=== PATIENT | female | born 1955 | race Caucasian/White ===

== ENCOUNTER → 2021-07-12 | Outpatient (CLI) | payer MEDICARE, OTHER ==
[~2021-07-12] MED LIST: ACIPHEX20 MG PO; ALDACTONE 100M100 MG PO; ALDACTONE50 MG PO; AMBIEN 5MG TABLE5 MG PO; ASPIRIN E.C. 8181 MG PO; B-121000 MCG PO; BIOTIN5000 MCG PO; CIPRO 500MG TA500 MG PO; COZAAR 50MG50 MG/TAB PO; FERRO-TIME325 MG PO; FERROUS SU325 MG/TAB PO; FLEXERIL 1010 MG/TAB PO; FOLIC ACID 11 MG/TA1 PO; GLUCOPHAGE500 MG/TAB PO; LASIX 40MG TABL40 MG PO; LASIX 80MG TABL80 MG PO; LYRICA 150MG C150 MG PO; MAGNESIUM CITR100 MG PO; MASON NATURAL2000 IU PO; MELATONIN5 M1 PO; NATURAL E400 IU PO; NATURAL MAGNES200 MG PO; NEURONTIN300 MG/CAP PO; PERCOCET 325 MG1 TA2 PO; PLAVIX 75MG TAB75 MG PO; TAMOXIFEN CITRA20 MG PO; TAURINE; TESSALON PERLE200 MG PO; TUMS500 MG PO; VITAMIN A10k PO; VITAMIN B125000 MCG PO; VITAMIN C500 MG PO; VITAMIN E1000 U/CAP PO; VITAMINC1000TA PO; XIFAXAN550 MG PO; ZANAFLEX CAPSULE4 MG PO; ZANTAC 150MG T150 MG PO; ZINC SULFATE 1566 MG PO
== END ==
LOC: COL.RAD 09:50
DX: K75.81 Nonalcoholic steatohepatitis (NASH) (principal); K74.60 Unspecified cirrhosis of liver

== ENCOUNTER 2021-09-20 09:06 | Outpatient (CLI) | payer MEDICARE, OTHER ==
[~2021-09-20] VITALS: Ht 165.1 cm; Wt 85.6 kg
[~2021-09-20 09:06] MED LIST changes: -ALDACTONE 100M100 MG PO; -ALDACTONE50 MG PO; -ASPIRIN E.C. 8181 MG PO; -B-121000 MCG PO; -BIOTIN5000 MCG PO; -CIPRO 500MG TA500 MG PO; -FERRO-TIME325 MG PO; -FERROUS SU325 MG/TAB PO; -FOLIC ACID 11 MG/TA1 PO; -LASIX 40MG TABL40 MG PO; -LASIX 80MG TABL80 MG PO; -MAGNESIUM CITR100 MG PO; -MASON NATURAL2000 IU PO; -MELATONIN5 M1 PO; -NATURAL E400 IU PO; -NATURAL MAGNES200 MG PO; -PLAVIX 75MG TAB75 MG PO; -TAURINE; -VITAMIN A10k PO; -VITAMIN B125000 MCG PO; -VITAMIN C500 MG PO; -VITAMIN E1000 U/CAP PO; -VITAMINC1000TA PO; -XIFAXAN550 MG PO; -ZINC SULFATE 1566 MG PO
[2021-09-20 09:40] VITALS: BP 106/68; PULSE 81; TEMP 98.3
--- NOTE | 2021-09-20 11:15 | NUR ---
Pt tolerated albumin infusion without issue. INT DC'd with catheter intact. She is escorted out to elevator, gait steady.
[2021-09-20] MEDS ORDERED: AMBIEN 5MG TABLE5 MG PO (12:13)
[2021-09-20] MEDS ORDERED: LASIX 80MG TABL80 MG PO (12:21)
[2021-09-20] MEDS ORDERED: FERRO-TIME325 MG PO (12:21)
[2021-09-20] MEDS ORDERED: ZINC SULFATE 1566 MG PO (12:22)
[2021-09-20] MEDS ORDERED: ALDACTONE 100M100 MG PO (12:23)
[2021-09-20] MEDS ORDERED: VITAMIN C500 MG PO (12:23)
[2021-09-20] MEDS ORDERED: PLAVIX 75MG TAB75 MG PO (12:24)
[2021-09-20] MEDS ORDERED: NATURAL E400 IU PO (12:24)
[2021-09-20] MEDS ORDERED: VITAMIN A10k PO (12:24)
[2021-09-20] MEDS ORDERED: CIPRO 500MG TA500 MG PO (12:25)
[2021-09-20] MEDS ORDERED: ASPIRIN E.C. 8181 MG PO (12:25)
[2021-09-20] MEDS ORDERED: FOLIC ACID 11 MG/TA1 PO (12:28)
[2021-09-20] MEDS ORDERED: NATURAL MAGNES200 MG PO (12:28)
[2021-09-20] MEDS ORDERED: MASON NATURAL2000 IU PO (12:28)
[2021-09-20] MEDS ORDERED: B-121000 MCG PO (12:29)
[2021-09-20] MEDS ORDERED: MELATONIN5 M1 PO (12:29)
[2021-09-20] MEDS ORDERED: XIFAXAN550 MG PO (12:30)
[2021-10-26] MEDS ORDERED: AMBIEN 5MG TABLE5 MG PO (16:44)
[2021-10-26] MEDS ORDERED: BIOTIN5000 MCG PO (16:45)
[2021-10-26] MEDS ORDERED: LASIX 40MG TABL40 MG PO (16:46)
[2021-10-26] MEDS ORDERED: MAGNESIUM CITR100 MG PO (16:48)
[2021-10-26] MEDS ORDERED: ACIPHEX20 MG PO (16:49)
[2021-10-26] MEDS ORDERED: ALDACTONE50 MG PO (16:50)
[2021-10-26] MEDS ORDERED: TAMOXIFEN CITRA20 MG PO (16:51)
[2021-10-26] MEDS ORDERED: VITAMIN A10k PO (16:52)
[2021-10-26] MEDS ORDERED: TAURINE (16:52)
[2021-10-26] MEDS ORDERED: VITAMIN E1000 U/CAP PO (16:53)
[2021-10-26] MEDS ORDERED: ZINC SULFATE 1566 MG PO (16:57)
[2021-10-26] MEDS ORDERED: VITAMIN B125000 MCG PO (16:57)
[2021-10-26] MEDS ORDERED: VITAMINC1000TA PO (17:02)
[2021-10-27] MEDS ORDERED: XIFAXAN550 MG PO (11:36)
[2021-10-27] MEDS ORDERED: FERROUS SU325 MG/TAB PO (11:37)
[2021-10-27] MEDS ORDERED: ZINC SULFATE 1566 MG PO (11:38)
== END 2021-09-20 12:31 | disposition home or self-care (01) ==
LOC: EUO 09:06
DX: K75.81 Nonalcoholic steatohepatitis (NASH) (principal); K74.60 Unspecified cirrhosis of liver
CPT/HCPCS: P9047

== ENCOUNTER 2021-10-27 13:00 | Outpatient (RCR) | payer MEDICARE, OTHER ==
[2021-10-26 17:33] VITALS: BP 97/45; PULSE 84; TEMP 97.9
[2021-10-26 17:48] VITALS: BP 101/40; PULSE 86; TEMP 98.1
[2021-10-26 18:03] VITALS: BP 95/63; PULSE 91; TEMP 98.5
[2021-10-26 18:33] VITALS: BP 108/65; PULSE 87; TEMP 98.5
--- NOTE | 2021-10-26 18:38 | NUR ---
Report to Verenice Hollis.
[2021-10-26 19:20] VITALS: BP 111/69; PULSE 90; TEMP 98.3
--- NOTE | 2021-10-26 19:31 | NUR ---
INT to right AC wrapped with coban. Pt to return at 1300 10/27/21 for second unit PRBC per pt request
[2021-10-27] VITALS (7 sets, daily range): BP systolic 103–115; BP diastolic 66–70; PULSE 73–90; TEMP 97.9–98.4
[~2021-10-27 13:00] MED LIST changes: +ALDACTONE 100M100 MG PO; +ALDACTONE50 MG PO; +ASPIRIN E.C. 8181 MG PO; +B-121000 MCG PO; +BIOTIN5000 MCG PO; +CIPRO 500MG TA500 MG PO; +FERRO-TIME325 MG PO; +FERROUS SU325 MG/TAB PO; +FOLIC ACID 11 MG/TA1 PO; +LASIX 40MG TABL40 MG PO; +LASIX 80MG TABL80 MG PO; +MAGNESIUM CITR100 MG PO; +MASON NATURAL2000 IU PO; +MELATONIN5 M1 PO; +NATURAL E400 IU PO; +NATURAL MAGNES200 MG PO; +PLAVIX 75MG TAB75 MG PO; +TAURINE; +VITAMIN A10k PO; +VITAMIN B125000 MCG PO; +VITAMIN C500 MG PO; +VITAMIN E1000 U/CAP PO; +VITAMINC1000TA PO; +XIFAXAN550 MG PO; +ZINC SULFATE 1566 MG PO
[2021-10-27] MEDS ORDERED: PLAVIX 75MG TAB75 MG PO (13:12)
[2021-10-27] MEDS ORDERED: VITAMIN A10k PO (13:12)
[2021-10-27] MEDS ORDERED: NATURAL E400 IU PO (13:13)
[2021-10-27] MEDS ORDERED: CIPRO 500MG TA500 MG PO (13:14)
[2021-10-27] MEDS ORDERED: NATURAL MAGNES200 MG PO (13:14)
--- NOTE | 2021-10-27 13:50 | NUR ---
INT DC'd with catheter intact. Pt exits from dept with steady gait.
[2021-10-27] MEDS ORDERED: MELATONIN5 M1 PO (14:00)
[2021-10-27] MEDS ORDERED: B-121000 MCG PO (14:01)
[2021-10-27] MEDS ORDERED: FOLIC ACID 11 MG/TA1 PO (14:01)
== END 2021-10-27 14:02 | disposition home or self-care (01) ==
LOC: EUO 13:00
DX: D05.11 Intraductal carcinoma in situ of right breast (principal); D64.9 Anemia, unspecified
CPT/HCPCS: J7050; P9016

== ENCOUNTER → 2021-12-30 | Outpatient (CLI) | payer MEDICARE, OTHER | LOC: MC.RAD 08:51 | DX: D05.11 Intraductal carcinoma in situ of right breast (principal) ==

== ENCOUNTER → 2022-01-04 | Outpatient (CLI) | payer MEDICARE, OTHER | LOC: MC.RAD 13:47 | DX: Z85.3 Personal history of malignant neoplasm of breast (principal) ==

== ENCOUNTER → 2022-02-21 | Outpatient (CLI) | payer MEDICARE, OTHER ==
[~2022-02-21] VITALS: Ht 165.1 cm; Wt 94.5 kg
[~2022-02-21] MED LIST changes: +DESYREL 50MG50 MG PO; +ELIQUIS 5MG PO; +MAGNESIUM200 MG PO; +MELATONIN5 M1 SL
[2022-02-21 11:59] VITALS: BP 114/74; PULSE 86; TEMP 98.1
--- NOTE | 2022-02-21 12:54 | NUR ---
pt returns to holding area, not enough fluid to drain abdomen. Procedure canceled. Pt out to car per ambulation.
== END ==
LOC: COL.RAD 11:25
DX: K75.81 Nonalcoholic steatohepatitis (NASH) (principal); K74.60 Unspecified cirrhosis of liver